=== PATIENT | female | born 1995 | race Asian ===

== ENCOUNTER 2020-08-14 05:54 | Emergency (ER) | payer BC ==
[~2020-08-14] VITALS: Ht 157.5 cm; Wt 52.2 kg
--- NOTE | 2020-08-14 06:20 | NUR ---
DR HAMILTON INTO EVAL PATIENT.
[2020-08-14] MEDS ORDERED: IV NORMAL SALINE 1000 ML BAG IV ONE (06:30)
[2020-08-14] MEDS ORDERED: ONDANSETRON 4 MG/2 ML VIAL IV ONE (06:30)
[2020-08-14] MEDS ORDERED: MORPHINE SULFATE 2 MG/1 ML DISP.SYRIN IV ONE (06:30)
[2020-08-14] MEDS ORDERED: MORPHINE SULFATE 4 MG/1 ML DISP.SYRIN ONE (06:42)
[2020-08-14] MEDS ORDERED: ONDANSETRON 4 MG/2 ML VIAL ONE (06:42)
[2020-08-14 06:43] LABS: *BILIRUBIN,URIN NEGATIVE (NEGATIVE); *BLOOD, URINE NEGATIVE (NEGATIVE); *CLARITY,URINE CLEAR (CLEAR); *COLOR,URINE YELLOW (YELLOW); *KETONES,URINE NEGATIVE (NEGATIVE); *UROBILINOGEN,URINE 0.2 E.U./dl (NORMAL); LEUKOCYTE ESTERASE ,URINE NEGATIVE (NEGATIVE); NITRITE, URINE NEGATIVE (NEGATIVE); PH,URINE 6.5 (5.0-8.0); UGLUCOSE NEGATIVE (NEGATIVE)
[2020-08-14 06:51] LABS: BASOPHILS % (AUTO) 0.5 % (0.0-2.0); EOSINOPHILS # (AUTO) 0.1 K/uL (0.0-0.7); EOSINOPHILS % (AUTO) 2.1 % (0.0-7.0); HEMOGLOBIN 14.2 g/dL (10.9-14.3); LYMPHOCYTES # (AUTO) 2.4 K/uL (20.0-40.0); LYMPHOCYTES % (AUTO) 38.6 % (20.5-51.5); MEAN CORPUSCULAR HGB CONC 34 g/dL (32.3-35.6); MONOCYTES # (AUTO) 0.4 K/uL (2.0-10.0); MONOCYTES % (AUTO) 6.3 % (0.0-11.0); NEUTROPHILS # (AUTO) 3.2 K/uL (1.8-8.9); NEUTROPHILS % (AUTO) 52.5 % (38.5-71.5); PLATELET COUNT (AUTO) 286 K/uL (179-408); RED BLOOD CELL COUNT(AUTO) 4.57 MIL/uL (3.63-4.92); WHITE BLOOD COUNT (AUTO) 6.2 K/uL (3.8-11.8)
[2020-08-14 07:00] LABS: *URINE HCG, QUAL NEGATIVE (NEGATIVE)
[2020-08-14 07:08] LABS: BILIRUBIN,DIRECT 0.1 mg/dL (0.0-0.2); BILIRUBIN,TOTAL 0.2 mg/dL (0.2-1.0); CREATININE 0.6 mg/dL (0.6-1.3); POTASSIUM 3.8 mmol/L (3.5-5.1); TOTAL PROTEIN, SERUM 7.5 g/dL (6.4-8.2)
--- NOTE | 2020-08-14 07:30 | NUR ---
chaperoned us being done. pt tolerated well.
--- NOTE | 2020-08-14 07:45 | NUR ---
called multiple ambulance companies, the earliest eta 0930 with [facility],
--- NOTE | 2020-08-14 09:40 | NUR ---
[facility] AT BEDSIDE.
--- NOTE | 2020-08-14 09:53 | NUR ---
PT TO [facility] FOR CT SCAN. PT HAS ABDOMINAL PAIN 5/10 AT THIS TIME. PT REFUSES PAIN MED AT THIS TIME.
[2020-08-14] MEDS ORDERED: KETOROLAC TROMETHAMINE 30 MG INJ IVP ONE (10:45)
[2020-08-14] MEDS ORDERED: KETOROLAC TROMETHAMINE 30 MG INJ ONE (10:52)
[2020-08-14] MEDS ORDERED: POLY17PO4 PO (10:57)
--- NOTE | 2020-08-14 11:22 | NUR ---
Patient discharged to home in stable condition. Written and verbal after care instructions given. Patient verbalizes understanding of instructions. Stressed follow up or return to ER for worsening s/s.PT WALKS IN STEADY GAIT. PT CALLED BOYFRIEND TO COME AND CANDY MAKER HELPER THE PT. PT SAYS FEELS BETTER, PT UNDERSTANDS THAT SHE NEEDS TO COME BACK IF PAIN IS NOT RELIEVED.
[2020-08-14 11:23] VITALS: BP 103/61
== END 2020-08-14 11:24 | disposition home or self-care (01) ==
LOC: ER 06:13
DX: R10.31 Right lower quadrant pain (principal); F31.9 Bipolar disorder, unspecified; F41.9 Anxiety disorder, unspecified; F17.200 Nicotine dependence, unspecified, uncomplicated
CPT/HCPCS: 36415; 74176; 76856; 80048; 80076; 81003; 83690; 84703; 85025; 85730; 96361; 96374; 96375; 99285; J1885; J2270; J2405; A4663; J7030